=== PATIENT | male | born 1980 | race Caucasian/White ===

== ENCOUNTER 2020-06-11 11:08 | Outpatient (NON) | payer BC, SELFPAY ==
[2020-06-11 22:58] LABS: SARS-CoV-2 RNA PCR Negative
== END 2020-06-11 11:09 ==
PROVIDERS: PCP Family Medicine; Visit Provider Nurse Practitioner Adult Health
DX: Z20.828 Contact with and (suspected) exposure to other viral communicable diseases (principal)
CPT/HCPCS: 87635; C9803; U0003

== ENCOUNTER 2020-11-07 09:12 | Outpatient (CLI) | payer BC, SELFPAY | END 2020-11-07 09:13 | disposition home or self-care (01) | LOC: ANHCOVIDVC 09:12 | PROVIDERS: PCP Internal Medicine | DX: Z23 Encounter for immunization (principal) | CPT/HCPCS: 0001A; 91300 ==

== ENCOUNTER 2020-11-28 09:12 | Outpatient (CLI) | payer BC, SELFPAY | END 2020-11-28 09:13 | disposition home or self-care (01) | LOC: ANHCOVIDVC 09:12 | PROVIDERS: PCP Internal Medicine | DX: Z23 Encounter for immunization (principal) | CPT/HCPCS: 0002A; 91300 ==

== ENCOUNTER 2023-08-28 01:00 | Day surgery (SDC) | payer BC, SELFPAY ==
[2023-08-08 14:53] VITALS: BMI 26.3
--- NOTE | 2023-08-27 11:40 | SUR.PREOP ---
Patient called regarding upcoming procedure. Reviewed preop instructions, appointment times, and procedure prep.
[2023-08-28 06:23] VITALS: BP 122/70; PULSE 70; RESP 18; TEMP 36.2; O2SAT 100; BMI 26.2
[2023-08-28] MEDS: LACTATED RINGERS 1,000 ML 150 ML IV CONT (06:48)
--- NOTE | 2023-08-28 07:08 | PM.HPGS ---
History of Present Illness History of Present Illness Consent: Risks, benefits, and alternatives have been discussed and questions answered. Patient agrees to proceed with procedure. Chief complaint: Family history malignant neoplasm digestiv Narrative: Koby Day is a 43 year old male referred for colon cancer screening due to a high risk of colon cancer. Maternal grandmother had colon cancer at age of 50. Also an uncle on his father's side had colon cancer which was stage IV when discovered. Review of Systems Review of Systems: All systems reviewed & are unremarkable except as noted in HPI and below PMFSH Past Medical History Medical History (Updated 08/28/23 @ 07:09 by Jim Cervantes MD) Family hx of colon cancer Surgical History Surgical History History of appendectomy Family History Family History Mother Hypothyroidism Father COPD (chronic obstructive pulmonary disease) Grandparent Dementia Grandparent Dementia Colon polyp Carcinoma of colon Sibling Asthma Social History Social History (Updated 04/08/23 @ 09:04 by Apurva Hoffmann MA) Smoking status: Never smoker Alcohol intake: current Drinks per week: 2 Alcohol use details: DRINKS Substance use: never Substance use type: does not use Lack of Transportation: No Lack of Food: Never True Current Housing: I Have Housing Concerned About Future Housing: No Difficulty Paying Gas/Electric Bills: No Difficulty Paying for Meds: No Currently Unemployed: No Education: Master's Degree or Higher Difficulty w/ Childcare or Family Care: No Living arrangements: with family Spiritual care concerns: No Meds Home Medications and Allergies Home Medications Medication Instructions Recorded Confirmed Type cetirizine 10 mg tablet (Zyrtec) 10 mg PO DAILY 08/04/20 08/28/23 History multivitamin 1 tablet PO DAILY 08/04/20 08/28/23 History Allergies Allergy/AdvReac Type Severity Reaction Status Date / Time No Known Allergies Allergy Verified 08/28/23 06:22 Vital Signs Vital Signs - 24 hr 08/28/23 06:23 Temperature 36.2 C L Pulse Rate 70 Respiratory Rate 18 Blood Pressure 122/70 Pulse Oximetry 100 Oxygen Delivery Room Air Exam Const: General: alert Orientation/consciousness: patient oriented x3 Resp: Auscultation: clear to auscultation bilaterally Cardio: Rhythm: regular rhythm GI: GI Palp: Yes Soft to palpation and No Tenderness to palpation present (GI) Neuro: General: patient oriented x3 Assessment and Plan Assessment and plan (1) Colon cancer screening: Code(s): Z12.11 - Encounter for screening for malignant neoplasm of colon Status: Acute Assessment and Plan: Colonoscopy with possible biopsy or polypectomy or cautery or injection of substances.
--- NOTE | 2023-08-28 07:15 | P.PNAN_ITS ---
Anes - Initial Pre Proc Eval Procedure: Operation Date: 08/28/23 07:30 Proposed Procedures p Colonoscopy - Jim Cervantes MD Date/Time: 08/28/23 07:15 Surgeon: Jim Cervantes MD Pre Op Diagnosis: Family history malignant neoplasm digestiv Patient Data Age: 43 Gender: M Height: 1.88 m Weight: 92.7 kg Last Vital Signs Temp 97.1 F L 08/28/23 06:23 Pulse 70 08/28/23 06:23 Resp 18 08/28/23 06:23 BP 122/70 08/28/23 06:23 Pulse Ox 100 08/28/23 06:23 O2 Del Method Room Air 08/28/23 06:23 Allergies Allergy/AdvReac Type Severity Reaction Status Date / Time No Known Allergies Allergy Verified 08/28/23 06:22 Home Medications Medication Instructions Recorded Confirmed Type cetirizine 10 mg tablet (Zyrtec) 10 mg PO DAILY 08/04/20 08/28/23 History multivitamin 1 tablet PO DAILY 08/04/20 08/28/23 History Patient hx anesthesia problems: none Family hx anesthesia problems: none Results Review: All pre-operative results and documents have been reviewed as part of the pre- operative evaluation. [facility] Past Medical History Medical History (Updated 08/28/23 @ 07:09 by Jim Cervantes MD) Family hx of colon cancer Surgical History Surgical History History of appendectomy Family History Family History Mother Hypothyroidism Father COPD (chronic obstructive pulmonary disease) Grandparent Dementia Grandparent Dementia Colon polyp Carcinoma of colon Sibling Asthma Social History Social History (Updated 04/08/23 @ 09:04 by Apurva Hoffmann MA) Smoking status: Never smoker Alcohol intake: current Drinks per week: 2 Alcohol use details: DRINKS Substance use: never Substance use type: does not use Lack of Transportation: No Lack of Food: Never True Current Housing: I Have Housing Concerned About Future Housing: No Difficulty Paying Gas/Electric Bills: No Difficulty Paying for Meds: No Currently Unemployed: No Education: Master's Degree or Higher Difficulty w/ Childcare or Family Care: No Living arrangements: with family Spiritual care concerns: No Anes - Eval Final PreProcedure Day of Procedure 08/28/23 07:15 Patient weight: normal Heart: regular rate and rhythm Lungs: clear to auscultation Airway: Mallampati scale class II Neurological: alert and oriented Last oral intake: >/= 8 hours ASA classification: II Emergent: no Anesthetic plan: proceed Anesthesia type and monitoring: general GIVS and standard monitoring Results Review: All pre-operative results and documents have been reviewed as part of the pre- operative evaluation. Informed Consent: The patient's anesthetic plan and its attendant risks and benefits were discussed with the patient/family/POA. Questions were solicited and answers provided to the satisfaction of the patient/family/POA.
[2023-08-28 07:43] VITALS: BP 100/58; PULSE 75; RESP 17; O2SAT 98
[2023-08-28 07:53] VITALS: BP 80/57; PULSE 70; RESP 22; O2SAT 97
[2023-08-28 08:03] VITALS: BP 106/65; PULSE 66; RESP 18; O2SAT 100
== END 2023-08-28 08:12 | disposition home or self-care (01) ==
PROVIDERS: PCP Nurse Practitioner Family; Visit Provider Internal Medicine Gastroenterology
PROC: 0DJD8ZZ Inspection of Lower Intestinal Tract, Via Natural or Artificial Opening Endoscopic (ICD-10-PCS; CPT 45378; principal; 2023-08-28 07:30)
DX: Z12.11 Encounter for screening for malignant neoplasm of colon (principal); Z80.0 Family history of malignant neoplasm of digestive organs
CPT/HCPCS: 45378; J2704; J7120